=== PATIENT | male | born 2000 | race Hispanic/Latino ===

== ENCOUNTER 2020-10-31 02:28 | Emergency (ER) | payer MEDICAID | END 2020-10-31 06:06 | disposition home or self-care (01) | LOC: ED 02:28 → EDBD 02:28 → ED 06:06 | DX: S16.1XXA Strain of muscle, fascia and tendon at neck level, initial encounter (principal); F10.129 Alcohol abuse with intoxication, unspecified; Y90.6 Blood alcohol level of 120-199 mg/100 ml; E87.6 Hypokalemia; S40.812A Abrasion of left upper arm, initial encounter; S40.811A Abrasion of right upper arm, initial encounter; V47.5XXA Car driver injured in collision with fixed or stationary object in traffic accident, initial encounter; Z88.0 Allergy status to penicillin | CPT/HCPCS: 70450; 71045; 71260; 72125; 74177; 80053; 82150; 82550; 83605; 83690; 85025; 86850; 86900; 86901; 99284-25; J7030; Q9967 ==